=== PATIENT | male | born 1960 | race Hispanic/Latino ===

== ENCOUNTER 2022-07-10 19:26 | Emergency (ER) | payer MEDICARE, OTHER ==
[~2022-07-10] VITALS: Ht 162.6 cm; Wt 67.6 kg
[~2022-07-10 19:26] MED LIST: ARIPIPRAZOLE30 MG PO
[2022-07-10] MEDS ORDERED: REXULTI3 MG PO (19:41)
== END 2022-07-10 21:22 | disposition home or self-care (01) ==
LOC: ED 19:26
DX: B34.9 Viral infection, unspecified (principal); Z79.899 Other long term (current) drug therapy
CPT/HCPCS: 87502; 87880; 99283; C9803; U0003

== ENCOUNTER 2024-05-13 10:40 | Emergency (ER) | payer MEDICARE, OTHER ==
[~2024-05-13] VITALS: Ht 162.6 cm; Wt 76.7 kg
[2024-05-13 11:45] VITALS: BP 121/85
[2024-05-13] MEDS ORDERED: PENICILLIN V POTASSIUM 500 MG TAB PO ONE (11:45)
== END 2024-05-13 11:49 | disposition home or self-care (01) ==
LOC: ED 10:40
DX: K04.7 Periapical abscess without sinus (principal); Z79.899 Other long term (current) drug therapy
CPT/HCPCS: 99283